=== PATIENT | female | born 1995 | race Caucasian/White ===

== ENCOUNTER 2017-08-29 00:16 | Emergency (ER) | payer BC, OTHER ==
[2017-08-29 00:21] VITALS: TEMP 98.1
[2017-08-29] MEDS ORDERED: predniSONE 50 MG TAB PO STA (01:02)
--- NOTE | 2017-08-29 01:04 | ED ---
Extremity Problem HPI - General Chief complaint: Extremity Problem,Nontraumatic Stated complaint: wrist pain Time Seen by Provider: 08/29/17 00:31 Source: patient Mode of arrival: ambulatory Limitations: no limitations - History of Present Illness Initial comments: 22-year-old female patient presents to the emergency department today for evaluation of right wrist pain and third and fourth digit numbness and tingling. Patient states this been going on for the last month and a half. 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 Patient states that she has tried taking ibuprofen and applying ice but it does not help. Patient states that sometimes the fingers fall asleep while she is at rest. She denies any injury to the hand or wrist. Patient denies any headache, neck pain, back pain, chest pain, shortness of breath, dizziness, weakness, abdominal pain, nausea, vomiting, or difficulties with bowel movements or urination. - Related Data Previous Rx's Medication Instructions Recorded predniSONE 50 mg PO DAILY #5 tablet 08/29/17 Allergies Allergy/AdvReac Type Severity Reaction Status Date / Time No Known Allergies Allergy Verified 08/29/17 00:21 Review of Systems ROS Statement: Those systems with pertinent positive or pertinent negative responses have been documented in the HPI. ROS Other: All systems not noted in ROS Statement are negative. Past Medical History Past Medical History: No Reported History History of Any Multi-Drug Resistant Organisms: None Reported Past Surgical History: No Surgical Hx Reported Past Psychological History: Anxiety Smoking Status: Current every day smoker Past Alcohol Use History: None Reported Past Drug Use History: Marijuana General Exam Limitations: no limitations General appearance: alert, in no apparent distress, other (This is a well- developed, well-nourished adult female patient in no acute distress. Vital signs upon presentation are temperature 98.1F, pulse 117, respirations 16, blood pressure 05/15/1988, pulse ox 99% on room air.) Eye exam: Present: normal appearance, PERRL, EOMI. Absent: scleral icterus, conjunctival injection, periorbital swelling ENT exam: Present: normal exam, normal oropharynx, mucous membranes moist Respiratory exam: Present: normal lung sounds bilaterally. Absent: respiratory distress, wheezes, rales, rhonchi, stridor Cardiovascular Exam: Present: regular rate, normal rhythm, normal heart sounds. Absent: systolic murmur, diastolic murmur, rubs, gallop, clicks Extremities exam: Present: normal inspection, full ROM, normal capillary refill , other (Right upper extremity is pink, warm, and dry. Cap refills less than 3 seconds. No evidence of swelling. Distal pulses intact.). Absent: tenderness , pedal edema, joint swelling, calf tenderness Neurological exam: Present: alert, oriented X3, CN II-XII intact Psychiatric exam: Present: normal affect, normal mood Skin exam: Present: warm, dry, intact, normal color. Absent: rash Course Vital Signs 08/29/17 08/29/17 00:18 01:17 Temperature 98.1 F 98.1 F Pulse Rate 117 H 101 H Respiratory 16 18 Rate Blood Pressure 124/89 113/80 O2 Sat by Pulse 99 98 Oximetry Medical Decision Making - Medical Decision Making 22-year-old female patient presented to the emergency department today for evaluation of right wrist pain and finger tingling. Physical examination was unremarkable. Patient good strength bilaterally. Distal pulses were intact. Neurovascular status was intact. Patient symptoms are consistent with carpal tunnel syndrome. We will give anti-inflammatories and steroids. She is instructed to follow-up with orthopedics for further evaluation. Return parameters discussed in detail. She verbalizes understanding and agrees with this plan. Disposition Clinical Impression: Carpal tunnel syndrome Disposition: HOME SELF-CARE Condition: Good Instructions: Paresthesia (ED), Arthralgia (ED) Additional Instructions: Follow-up with orthopedics as directed. Complete medication and full. Continue taking anti-inflammatories with meals. Return here immediately for any new, worsening, or concerning symptoms. Prescriptions: predniSONE 50 mg PO DAILY #5 tablet Is patient prescribed a controlled substance at d/c from ED?: No Referrals: None,Stated [Primary Care Provider] - 1-2 days Michael Butts DO [Doctor of Osteopathic Medicine] - 1-2 days Time of Disposition: 01:04
[2017-08-29 01:19] VITALS: BP 113/80; PULSE 101; RESP 18
== END 2017-08-29 01:18 | disposition home or self-care (01) ==
LOC: EC 00:16
DX: G56.01 Carpal tunnel syndrome, right upper limb (principal); F17.200 Nicotine dependence, unspecified, uncomplicated
CPT/HCPCS: 99283; J7512

== ENCOUNTER 2018-07-25 00:38 | Emergency (ER) | payer BC, OTHER ==
[2018-07-25 01:15] VITALS: RESP 16; TEMP 97.8
[2018-07-25] MEDS ORDERED: LORazepam 2 MG/ML INJ IV STA (01:33)
[2018-07-25] MEDS ORDERED: SODIUM CHLORIDE 0.9% 1,000 ML IV ONE (01:33)
[2018-07-25 02:05] LABS: Basophils % (A) 0 %; Eosinophils # (A) 0.2 k/uL (0-0.7); Eosinophils % (A) 1 %; HCT 43.4 % (34.0-46.0); HGB 14.7 gm/dL (11.4-16.0); Lymphocytes # (A) 1.9 k/uL (1.0-4.8); Lymphocytes % (A) 16 %; MCH 30.3 pg (25.0-35.0); MCHC 33.8 g/dL (31.0-37.0); MCV 89.5 fL (80.0-100.0); Mean Platelet Volume 7.6; Monocytes # (A) 0.5 k/uL (0-1.0); Monocytes % (A) 4 %; Neutrophils # (A) 9.6 k/uL (1.3-7.7); Neutrophils % (A) 78 %; Platelet Count 321 k/uL (150-450); RBC 4.85 m/uL (3.80-5.40); RDW 13.7 % (11.5-15.5); WBC 12.3 k/uL (3.8-10.6)
[2018-07-25 02:16] LABS: ALT 23 U/L (9-52); AST 32 U/L (14-36); Albumin 4.6 g/dL (3.5-5.0); Alkaline Phosphatase 94 U/L (38-126); Anion Gap 11 mmol/L; Blood Urea Nitrogen 10 mg/dL (7-17); Calcium 10.1 mg/dL (8.4-10.2); Carbon Dioxide 25 mmol/L (22-30); Chloride 104 mmol/L (98-107); Glucose 101 mg/dL (74-99); Potassium 4.4 mmol/L (3.5-5.1); Sodium 140 mmol/L (137-145); Total Bilirubin 0.5 mg/dL (0.2-1.3)
--- NOTE | 2018-07-25 02:29 | XR ---
EXAM: XR Chest, 2 Views CLINICAL HISTORY: Pain TECHNIQUE: Frontal and lateral views of the chest. COMPARISON: No relevant prior studies available. FINDINGS: Lungs: Unremarkable. No consolidation. Pleural space: Unremarkable. No pneumothorax. Heart: Unremarkable. No cardiomegaly. Mediastinum: Unremarkable. Bones/joints: Unremarkable. IMPRESSION: Unremarkable 2 views of the chest
--- NOTE | 2018-07-25 03:19 | ED ---
Anxiety HPI - General Chief Complaint: Anxiety Stated Complaint: Panic Attack Time Seen by Provider: 07/25/18 01:16 Source: patient Mode of arrival: ambulatory - History of Present Illness Initial Comments: 22-year-old female patient presents to the emergency department today for evaluation of chest pain, racing heart, and "brain fog". Patient states she's been having these symptoms for the last 2 weeks. Patient states she was diagnosed with anxiety by pulse and emergency department and her primary care physician. States she has been unable to sleep and 2 weeks. States she has been taking Xanax as needed but it is not helping. Patient is concerned she may have a hormonal imbalance and would like her hormones checked. She states that she does not feel anxious. She states that she is happy with her life and has not suicidal or homicidal. She denies any street drug use. Denies any use of stimulants such as caffeine. She denies any headache, blurred vision, double vision, weakness, dizziness, or numbness or tingling. Denies any history of similar symptoms before 2 weeks ago. Patient denies any recent rash, fever, chills, abdominal pain, nausea, vomiting, diarrhea, constipation, back pain, , hematuria, dysuria, urinary urgency, urinary frequency, headache, visual changes, or any other complaints. She denies chance of . - Related Data Home Medications: Previous Rx's Medication Instructions Recorded predniSONE 50 mg PO DAILY #5 tablet 08/29/17 Allergies/Adverse Reactions: Allergies Allergy/AdvReac Type Severity Reaction Status Date / Time No Known Allergies Allergy Verified 08/29/17 00:21 Review of Systems ROS Statement: Those systems with pertinent positive or pertinent negative responses have been documented in the HPI. ROS Other: All systems not noted in ROS Statement are negative. Past Medical History Past Medical History: No Reported History History of Any Multi-Drug Resistant Organisms: None Reported Past Surgical History: No Surgical Hx Reported Past Psychological History: Anxiety Smoking Status: Current every day smoker Past Alcohol Use History: None Reported Past Drug Use History: Marijuana General Exam Limitations: no limitations General appearance: alert, in no apparent distress, other (Physical well-devel oped, well-nourished adult female patient in no acute distress. Vital signs upon presentation are temperature 97.8F, pulse 109, respirations 60, pulse ox is 98% on room air.) Eye exam: Present: normal appearance, PERRL, EOMI. Absent: scleral icterus, conjunctival injection, periorbital swelling ENT exam: Present: normal exam, normal oropharynx, mucous membranes moist Respiratory exam: Present: normal lung sounds bilaterally. Absent: respiratory distress, wheezes, rales, rhonchi, stridor Cardiovascular Exam: Present: regular rate, normal rhythm, normal heart sounds. Absent: systolic murmur, diastolic murmur, rubs, gallop, clicks GI/Abdominal exam: Present: soft, normal bowel sounds. Absent: distended, tenderness, guarding, rebound, rigid Neurological exam: Present: alert, oriented X3, CN II-XII intact Psychiatric exam: Present: normal affect, normal mood Skin exam: Present: warm, dry, intact, normal color. Absent: rash Course Vital Signs 07/25/18 07/25/18 01:11 03:25 Temperature 97.8 F 97.8 F Pulse Rate 109 H 71 Respiratory 16 16 Rate Blood Pressure 124/89 O2 Sat by Pulse 98 99 Oximetry Medical Decision Making - Medical Decision Making 22-year-old female patient presents to the emergency department today for evaluation of anxiety, racing heart, chest pain, and brain fog. Physical examination is unremarkable. She is neurologically intact with no focal deficits. Patient was normal sinus rhythm on telemetry monitoring throughout visit. Labs reviewed and were unremarkable. TSH is within normal range. Upon reevaluation patient is feeling better. She'll be discharged home at this time to follow-up with her primary care physician in one to 2 days. She is instructed to discuss her monitoring. Return parameters were discussed in detail. She verbalizes understanding and agrees with this plan. - Lab Data Result diagrams: 07/25/18 01:48 07/25/18 01:48 Lab Results 07/25/18 07/25/18 07/25/18 Range/Units 01:48 01:48 01:48 WBC 12.3 H (3.8-10.6) k/uL RBC 4.85 (3.80-5.40) m/uL Hgb 14.7 (11.4-16.0) gm/dL Hct 43.4 (34.0-46.0) % MCV 89.5 (80.0-100.0) fL MCH 30.3 (25.0-35.0) pg MCHC 33.8 (31.0-37.0) g/dL RDW 13.7 (11.5-15.5) % Plt Count 321 (150-450) k/uL Neutrophils % 78 % Lymphocytes % 16 % Monocytes % 4 % Eosinophils % 1 % Basophils % 0 % Neutrophils # 9.6 H (1.3-7.7) k/uL Lymphocytes # 1.9 (1.0-4.8) k/uL Monocytes # 0.5 (0-1.0) k/uL Eosinophils # 0.2 (0-0.7) k/uL Basophils # 0.0 (0-0.2) k/uL D-Dimer 0.27 (<0.60) mg/L FEU Sodium 140 (137-145) mmol/L Potassium 4.4 (3.5-5.1) mmol/L Chloride 104 (98-107) mmol/L Carbon Dioxide 25 (22-30) mmol/L Anion Gap 11 mmol/L BUN 10 (7-17) mg/dL Creatinine 0.53 (0.52-1.04) mg/dL Est GFR (CKD-EPI)AfAm >90 (>60 ml/min/1.73 sqM) Est GFR (CKD-EPI)NonAf >90 (>60 ml/min/1.73 sqM) Glucose 101 H (74-99) mg/dL Calcium 10.1 (8.4-10.2) mg/dL Magnesium 2.0 (1.6-2.3) mg/dL Total Bilirubin 0.5 (0.2-1.3) mg/dL AST 32 (14-36) U/L ALT 23 (9-52) U/L Alkaline Phosphatase 94 (38-126) U/L Troponin I (0.000-0.034) ng/mL Total Protein 8.0 (6.3-8.2) g/dL Albumin 4.6 (3.5-5.0) g/dL TSH 1.990 (0.465-4.680) mIU/L 07/25/18 Range/Units 01:48 WBC (3.8-10.6) k/uL RBC (3.80-5.40) m/uL Hgb (11.4-16.0) gm/dL Hct (34.0-46.0) % MCV (80.0-100.0) fL MCH (25.0-35.0) pg MCHC (31.0-37.0) g/dL RDW (11.5-15.5) % Plt Count (150-450) k/uL Neutrophils % % Lymphocytes % % Monocytes % % Eosinophils % % Basophils % % Neutrophils # (1.3-7.7) k/uL Lymphocytes # (1.0-4.8) k/uL Monocytes # (0-1.0) k/uL Eosinophils # (0-0.7) k/uL Basophils # (0-0.2) k/uL D-Dimer (<0.60) mg/L FEU Sodium (137-145) mmol/L Potassium (3.5-5.1) mmol/L Chloride (98-107) mmol/L Carbon Dioxide (22-30) mmol/L Anion Gap mmol/L BUN (7-17) mg/dL Creatinine (0.52-1.04) mg/dL Est GFR (CKD-EPI)AfAm (>60 ml/min/1.73 sqM) Est GFR (CKD-EPI)NonAf (>60 ml/min/1.73 sqM) Glucose (74-99) mg/dL Calcium (8.4-10.2) mg/dL Magnesium (1.6-2.3) mg/dL Total Bilirubin (0.2-1.3) mg/dL AST (14-36) U/L ALT (9-52) U/L Alkaline Phosphatase (38-126) U/L Troponin I <0.012 (0.000-0.034) ng/mL Total Protein (6.3-8.2) g/dL Albumin (3.5-5.0) g/dL TSH (0.465-4.680) mIU/L - Radiology Data Radiology results: report reviewed, image reviewed Two-view x-ray of the chest is obtained. Report was reviewed in its entirety. Impression by Dr. Jimenez shows unremarkable 2 views of the chest. Disposition Clinical Impression: Anxiety, Palpitations Disposition: HOME SELF-CARE Condition: Good Instructions (If sedation given, give patient instructions): Heart Palpitations (ED), Anxiety (ED) Additional Instructions: Continue all medications as directed. Follow-up with your primary care physician for recheck in 1-2 days. Return to the emergency department immediately for any new, worsening, or concerning symptoms. Is patient prescribed a controlled substance at d/c from ED?: No Referrals: Sai Guerrero MD [Primary Care Provider] - 1-2 days Zuri Campos MD [STAFF PHYSICIAN] - 1-2 days Time of Disposition: 03:19
[2018-07-25 03:27] VITALS: BP 124/89; PULSE 71
== END 2018-07-25 03:27 | disposition home or self-care (01) ==
LOC: EC 00:38
DX: F41.9 Anxiety disorder, unspecified (principal); R00.2 Palpitations; R07.9 Chest pain, unspecified; F17.200 Nicotine dependence, unspecified, uncomplicated
CPT/HCPCS: 36415; 85379; 80053; 84443; 83735; 84484; 85025; 71046; 99283; 96374; 96361 ×2; J2060

== ENCOUNTER 2018-07-25 21:03 | Inpatient (IN) | payer MEDICAID, OTHER ==
[2018-07-25] MEDS ORDERED: LORazepam 1 MG TAB PO STA (21:51)
--- NOTE | 2018-07-25 21:51 | ED ---
Psych HPI - General Chief Complaint: Psychiatric Symptoms Stated Complaint: Paniac attack, mental health Time Seen by Provider: 07/25/18 21:51 Source: patient, RN notes reviewed, old records reviewed Mode of arrival: ambulatory - History of Present Illness Initial Comments: This is a 22-year-old female the ER for evaluation. Patient is today for evaluation of psychiatric illness. Recent hospital admissions. Anxiety and depression. Depression is significantly increased and she is now suicidal. MD Complaint: suicidal ideation, feels depressed -: unknown Associated Psychiatric Symptoms: depression, suicidal ideation History of same: Yes Quality: constant, getting worse Improves With: none Worsens With: none Associated Symptoms: denies other symptoms Treatments Prior to Arrival: placed on mental health hold If Self Harm: admits thoughts of self harm - Related Data Previous Rx's Medication Instructions Recorded Sertraline [Zoloft] 100 mg PO HS #30 tab 07/29/18 Allergies Allergy/AdvReac Type Severity Reaction Status Date / Time No Known Allergies Allergy Verified 07/26/18 03:10 Review of Systems ROS Statement: Those systems with pertinent positive or pertinent negative responses have been documented in the HPI. ROS Other: All systems not noted in ROS Statement are negative. Past Medical History Past Medical History: No Reported History History of Any Multi-Drug Resistant Organisms: None Reported Past Surgical History: No Surgical Hx Reported Past Psychological History: Anxiety Smoking Status: Current every day smoker Past Alcohol Use History: None Reported Past Drug Use History: Marijuana - Past Family History Mother Family Medical History: No Reported History Father History Unknown: Yes Additional Family Medical History / Comment(s): Substance abuse and mental health history. General Exam Limitations: no limitations General appearance: alert, in no apparent distress, anxious Head exam: Present: atraumatic, normocephalic, normal inspection Eye exam: Present: normal appearance, PERRL, EOMI. Absent: scleral icterus, conjunctival injection, periorbital swelling ENT exam: Present: normal exam, mucous membranes moist Neck exam: Present: normal inspection. Absent: tenderness, meningismus, lymphadenopathy Respiratory exam: Present: normal lung sounds bilaterally. Absent: respiratory distress, wheezes, rales, rhonchi, stridor Cardiovascular Exam: Present: normal rhythm, tachycardia, normal heart sounds. Absent: systolic murmur, diastolic murmur, rubs, gallop, clicks GI/Abdominal exam: Present: soft, normal bowel sounds. Absent: distended, tenderness, guarding, rebound, rigid Extremities exam: Present: normal inspection, full ROM, normal capillary refill. Absent: tenderness, pedal edema, joint swelling, calf tenderness Back exam: Present: normal inspection Neurological exam: Present: alert, oriented X3, CN II-XII intact Psychiatric exam: Present: normal affect, normal mood Skin exam: Present: warm, dry, intact, normal color. Absent: rash Course Vital Signs 07/25/18 07/26/18 07/26/18 21:29 02:07 02:56 Temperature 98.4 F 97.0 F L Pulse Rate 117 H Pulse Rate [ 85 Right] Respiratory 20 16 16 Rate Blood Pressure 157/96 Blood Pressure 121/82 [Right Arm] O2 Sat by Pulse 99 97 Oximetry - Reevaluation(s) Reevaluation #1: 07/25/18 23:25 Medical clear for psychiatric evaluation Medical Decision Making - Medical Decision Making 23 female the ER for mental health evaluation, patient to be admitted for mental health and psychiatric evaluation and treatment - Lab Data Result diagrams: 07/27/18 09:13 07/27/18 09:13 Lab Results 07/25/18 07/25/18 07/25/18 Range/Units 01:51 21:55 21:55 TSH 1.960 (0.465-4.680) mIU/L Urine HCG, Qual Not Detected (Not Detectd) Urine Opiates Screen Not Detected (NotDetected) Ur Oxycodone Screen Not Detected (NotDetected) Urine Methadone Screen Not Detected (NotDetected) Ur Propoxyphene Screen Not Detected (NotDetected) Ur Barbiturates Screen Not Detected (NotDetected) U Tricyclic Antidepress Not Detected (NotDetected) Ur Phencyclidine Scrn Not Detected (NotDetected) Ur Amphetamines Screen Not Detected (NotDetected) U Methamphetamines Scrn Not Detected (NotDetected) U Benzodiazepines Scrn Detected H (NotDetected) Urine Cocaine Screen Not Detected (NotDetected) U Marijuana (THC) Screen Not Detected (NotDetected) Disposition Clinical Impression: Anxiety, Major depressive disorder, recurrent, Panic disorder Disposition: TRANSFER TO PSYCH HOSP/UNIT Condition: Fair Is patient prescribed a controlled substance at d/c from ED?: No
[2018-07-25 22:24] LABS: Amphetamine Screen,Urine Not Detected (NotDetected); Barbiturate Screen,Urine Not Detected (NotDetected); Benzodiazepines Screen,Urine Detected (NotDetected); Cocaine Screen,Urine Not Detected (NotDetected); Methadone Screen, Urine Not Detected (NotDetected); Opiate Screen,Urine Not Detected (NotDetected); Oxycodone Screen, Urine Not Detected (NotDetected); Phencyclidine Screen,Urine Not Detected (NotDetected); Tricyclic Antidepressant,Urine Not Detected (NotDetected); Urn Cannabinoid Scrn Not Detected (NotDetected)
[2018-07-26] MEDS ORDERED: MAG HYDROX/AL HYDROX/SIMETH 30 ML CUP PO PRN (02:21)
[2018-07-26] MEDS ORDERED: ACETAMINOPHEN TAB 325 MG TAB PO PRN (02:21)
[2018-07-26] MEDS ORDERED: MAGNESIUM HYDROXIDE 2,400 MG/10 ML CUP PO PRN (02:21)
[2018-07-26] MEDS ORDERED: LORazepam 2 MG/ML INJ IM PRN (02:23)
[2018-07-26 03:03] VITALS: BMI 37.0
--- NOTE | 2018-07-26 10:50 | HP ---
HISTORY AND PHYSICAL DATE OF SERVICE DICTATION: 07/26/2018 IDENTIFYING DATA: This patient is a 23-year-old single female who was admitted to the mental health unit through the emergency room for suicidal ideations secondary to having ongoing panic attacks. HISTORY OF PRESENT ILLNESS: The patient states that for 2 weeks now she has been experiencing daily panic attacks that have been overwhelming. She presented to the ER just yesterday for evaluation and was discharged. She states that because of the panic, she was feeling hopeless and had thoughts of driving her car off of a bridge. She states she does not feel happy and experiences anhedonia. The panic attacks are described as episodes with chest pain, increased heart rate, headache, numbness or cold feeling, dizziness and sweating. These can last 15 minutes or for extensive period of time. She describes recent trouble falling asleep at night. Appetite is decreased. Energy is stable. She identifies no clear precipitant to these panic attacks that have started just 2 weeks ago. She describes no other panic attacks in her life prior to that. She has had depression in the past. No homicidal ideation reported. She endorses no hypomanic or manic symptoms. She endorses no auditory or visual hallucinations or any specific delusions. She resides with her fiance. She states at times, there may be firearms in the home, but they are not consistently there. PAST PSYCHIATRIC HISTORY: This is her second inpatient psychiatric hospitalization. The first was at age 17 at a [facility]. She had overdosed with pills as a suicide attempt. She is not currently open with any mental health clinic. She states that she is scheduled to have an intake on Saturday at [facility]. She was prescribed Xanax by the ER physician 0.25 mg. She states those are barely effective. In the remote past she was on Wellbutrin for very brief period of time, but not long enough for it to demonstrate efficacy. PAST MEDICAL HISTORY: None reported. Other than her stating she thinks she has hypothyroidism. She states there was a time when her TSH was elevated. However, subsequent labs including our in the ER indicate a normal level. She is concerned that she needs to see an metrology engineer to address this as it may be behind the panic attacks. ALLERGIES: No known drug allergies. CHEMICAL DEPENDENCY HISTORY: She reports no use of alcohol, marijuana, or any illicit drugs. She states that she did try marijuana in the past, but felt that it made her anxious. At age 17 she did try several substances including cocaine and street pills, but states she had no specific addiction to any of them. She has never been placed in residential treatment for chemical dependency reasons. FAMILY PSYCHIATRIC HISTORY: She states the her entire father's side of the family has depression, anxiety, as well as alcohol use disorder. She states her maternal grandfather also has alcohol use disorder. No suicides in the family. SOCIAL HISTORY: The patient is 23 years old. She is engaged. She has been with her fiance for 3 years. They have been engaged since February 2017. She has no children. She resides with her fiance. She is unemployed. She has a high school education. She attended [employer] briefly. She has 3 brothers, 2 sisters. She is mainly from the [place] area. She was raised by her mother. Her mother had been twice. The patient's biological father lived in [place]. He is now due to liver failure related to alcohol use. LEGAL HISTORY: She was arrested at age 17 for theft. She only had to pay a fine. ABUSE HISTORY: None reported. MENTAL STATUS EXAM: The patient is an overweight female appearing her stated age. She is dressed in her own clothing. Hygiene and grooming are adequate. She describes a depressed and anxious mood with hopeless thinking. She presented with acute suicidal ideation. She reports no homicidal ideation. She reports no auditory or visual hallucinations or any specific delusions. There is no observed evidence of psychosis. Thought process is linear. she demonstrates no tangential thinking, loose associations or flight of ideas. She does not appear hypomanic or manic. She demonstrates no verbal or physical aggressiveness. She demonstrates no involuntary repetitive movements. Affect is congruent to reported mood, appearing sad. She is oriented to person, place, and date. She is able to name the days of the week backwards. STRENGTHS: Housing, supportive relationship with major. WEAKNESSES: Mood and anxiety symptoms, causing significant psychosocial dysfunction. INTELLECT: Average. IMPRESSION: Major depressive disorder, recurrent, severe, without psychosis, panic disorder. PLAN: The patient has been admitted to the mental health unit voluntarily. We reviewed her presenting symptoms and treatment options. We decided to initiate Zoloft 50 mg at bedtime to address depressive and anxiety symptoms. Ativan will be used as needed but sparingly for acute anxiety. She is asked to participate fully in the milieu. We will monitor her for safety. She will be seen by Internal Medicine for routine history and physical exam. Social Work will meet with the patient to complete a psychosocial assessment and begin discharge planning. We will involve her family in treatment and discharge planning as she will allow. YOUNG / GABBI: [id number] /
[2018-07-26] MEDS: LORazepam 1 MG TAB PO PRN (19:33)
[2018-07-26] MEDS: SERTRALINE 50 MG TAB PO SCH (20:02)
--- NOTE | 2018-07-26 21:26 | P.MDCNMH ---
History of Present Illness H&P Date: 07/26/18 Chief Complaint: Depression Patient is a 23-year-old female with a known history of thyroid disorder, anxiety and nicotine addiction came to ER with complaints of depression and suicidal ideation. Patient has been having recurrent panic attacks recently. Patient came to the hospital voluntarily. Patient has been increasing depressive symptoms and low energy. Otherwise patient denied any complaints of chest pain or shortness of breath. No nausea vomiting or abdominal pain. No dysuria or hematuria. No fever no chills. Denied any recent illnesses. No cough or sputum production. Review of Systems Constitutional: Patient denies any fever or chills . No generalized weakness or weight loss. Abdomen: Patient denied nausea vomiting and diarrhea and abdominal pain. Cardiovascular: Patient denies any chest pain or short of breath no palpitations. Respiratory: patient denied any cough is from production. No shortness of breath Neurologic: Patient denied any numbness or tingling headache. Musculoskeletal: Patient denies any complaints of joint swelling or deformity. Skin: Negative Psychiatric: Depressed Endocrine: No heat or cold intolerance. No recent weight gain. Genitourinary: No dysuria or hematuria. All other 14 point ROS negative except the above Past Medical History Past Medical History: Thyroid Disorder History of Any Multi-Drug Resistant Organisms: None Reported Past Surgical History: No Surgical Hx Reported Additional Past Surgical History / Comment(s): Carpel tunnel right hand. Past Anesthesia/Blood Transfusion Reactions: No Reported Reaction Past Psychological History: Anxiety Smoking Status: Current every day smoker Past Alcohol Use History: Occasional Additional Past Alcohol Use History / Comment(s): Patient states that she drinks on occasion. Past Drug Use History: None Reported Additional Drug Use History / Comment(s): Pt denies any drug use at this time. - Past Family History Mother Family Medical History: No Reported History Father History Unknown: Yes Additional Family Medical History / Comment(s): Substance abuse and mental health history. Medications and Allergies Home Medications Medication Instructions Recorded Confirmed Type ALPRAZolam [Xanax] 0.25 mg PO BID PRN 07/25/18 07/25/18 History Allergies Allergy/AdvReac Type Severity Reaction Status Date / Time No Known Allergies Allergy Verified 07/26/18 03:10 Physical Exam Vitals: Vital Signs Temp Pulse Pulse Resp BP BP Pulse Ox 07/26/18 19:33 108 H 132/83 07/26/18 02:56 97.0 F L 85 16 121/82 97 07/26/18 02:07 16 07/25/18 21:29 98.4 F 117 H 20 157/96 99 Intake and Output 07/26/18 07/26/18 07/26/18 06:59 14:59 22:59 Other: Weight 107.218 kg PHYSICAL EXAMINATION: Patient is lying in the bed comfortably, no acute distress, awake alert and oriented.. HEENT: Normocephalic. Neck is supple. Pupils reactive. Nostrils clear. Oral cavity is moist. Ears reveal no drainage. Neck reveals no JVD, carotid bruits, or thyromegaly. CHEST EXAMINATION: Trachea is central. Symmetrical expansion. Lung almotne clear to auscultation and percussion. CARDIAC: Normal S1, S2 with no gallops. No murmurs ABDOMEN: Soft. Bowel sounds normal. No organomegaly. No abdominal bruits. Extremities: reveal no edema. No clubbing or cyanosis Neurologically awake, alert, oriented x3 with well-coordinated movements. No focal deficits noted Skin: No rash or skin lesions. Psychiatric: Coperative. Nonsuicidal Musculoskeletal: No joint swelling or deformity. Normal range of motion. Cranial Nerve Examination - Cranial Nerves Cranial Nerve I- Olfactory: Intact Cranial Nerve II- Optic: Intact Cranial Nerve III- Oculomotor: Intact Cranial Nerve IV- Trochlear: Intact Cranial Nerve V- Trigeminal: Intact Cranial Nerve - Abducens: Intact Cranial Nerve VII- Facial: Intact Cranial Nerve VIII- Auditory: Intact Cranial Nerve IX- Glossopharyngeal: Intact Cranial Nerve X- Vagus: Intact Cranial Nerve XI- Accessory: Intact Cranial Nerve XII- Hypoglossal: Intact Results Labs: Abnormal Lab Results - Last 24 Hours (Table) 07/25/18 Range/Units 21:55 U Benzodiazepines Scrn Detected H (NotDetected) Assessment and Plan Assessment: Depression with suicidal ideation Major depression History of hypothyroidism. Currently not on any medications at home Anxiety Panic attacks Nicotine addiction History of carpal tunnel syndrome Plan: Patient be continued on current antidepressants as per psychiatric recommendations. Recheck CBC CMP and TSH level. Smoking cessation has been counseled excessively. Otherwise continue the current management and follow karen castilloy. Thank you for your consult. Time with Patient: Greater than 30
[2018-07-27] MEDS: LORazepam 1 MG TAB PO PRN ×2 (01:16→23:23)
[2018-07-27 01:34] VITALS: TEMP 97.9
[2018-07-27 10:02] LABS: Basophils % (A) 0 %; Eosinophils # (A) 0.3 k/uL (0-0.7); Eosinophils % (A) 2 %; HCT 41.9 % (34.0-46.0); HGB 13.9 gm/dL (11.4-16.0); Lymphocytes # (A) 2.3 k/uL (1.0-4.8); Lymphocytes % (A) 19 %; MCH 29.9 pg (25.0-35.0); MCHC 33.2 g/dL (31.0-37.0); Mean Platelet Volume 7.6; Monocytes # (A) 0.7 k/uL (0-1.0); Monocytes % (A) 6 %; Neutrophils # (A) 8.9 k/uL (1.3-7.7); Neutrophils % (A) 72 %; Platelet Count 311 k/uL (150-450); RBC 4.66 m/uL (3.80-5.40); RDW 13.5 % (11.5-15.5); WBC 12.3 k/uL (3.8-10.6)
[2018-07-27 10:20] LABS: ALT 26 U/L (9-52); AST 26 U/L (14-36); Albumin 4.2 g/dL (3.5-5.0); Alkaline Phosphatase 76 U/L (38-126); Anion Gap 12 mmol/L; Blood Urea Nitrogen 10 mg/dL (7-17); Calcium 9.8 mg/dL (8.4-10.2); Carbon Dioxide 29 mmol/L (22-30); Chloride 99 mmol/L (98-107); Glucose 142 mg/dL (74-99); Potassium 4.4 mmol/L (3.5-5.1); Sodium 140 mmol/L (137-145); Total Bilirubin 0.8 mg/dL (0.2-1.3); Total Protein 7.3 g/dL (6.3-8.2)
--- NOTE | 2018-07-27 11:10 | P.PN ---
Progress Note - Text Interval history: The patient is found the hallway socializing with peers. She follows me to an interview room. She indicates that today she is feeling better. She describes having a "freak out" last evening. She felt acutely anxious and had a sense of doom depressive feelings were heightened. She took her evening Zoloft and Ativan and woke up feeling better. She describes some initial nausea with the Zoloft but we discussed that this may dissipate over the next several days. She does not feel that the nausea is severe. She has been attending groups. She is looking forward to a visit with family this evening. Mental status exam: The patient is a female appearing her stated age. She stressor own clothing. Hygiene grooming adequate. She reports that last evening she felt bad but feels better this morning. She reports having suicidal thoughts and any time she has a panic attack. She endorses no thoughts of harming others. She is reporting no auditory or visual hallucinations or any specific delusions. She does not appear hypomanic or manic. She demonstrates no verbal or physical aggressiveness. Insight and judgment grossly intact. Affect is brighter. Plan: The patient will continue on the Zoloft as written. She is using the Ativan as needed. We will monitor her for safety and encourage full participation in the milieu. She requires continued psychiatric hospitalization. Vital signs reviewed.
[2018-07-27 19:32] LABS: Appearance,Urine Cloudy (Clear); Bacteria,Urine Occasional /hpf; Bilirubin,Urine Negative (Negative); Blood,Urine Moderate (Negative); Budding Yeast,Urine Occasional /hpf; Color,Urine Yellow; Glucose,Urine (UA) Negative (Negative); Ketones,Urine Negative (Negative); Leukocyte Esterase,Urine Negative (Negative); Mucus,Urine Rare /hpf; Nitrite,Urine Negative (Negative); PH, Urine 5.5 (5.0-8.0); Protein,Urine Negative (Negative); RBC,Urine 1 /hpf (0-5); Specific Gravity,Urine 1.007 (1.001-1.035); Squamous Epithelial Cell,Urine 5 /hpf (0-4); Urobilinogen,Urine <2.0 mg/dL (<2.0); WBC,Urine 2 /hpf (0-5)
[2018-07-27] MEDS: SERTRALINE 50 MG TAB PO SCH (20:02)
[2018-07-28] MEDS ORDERED: MELATONIN 3 MG TABLET PO PRN (10:17)
--- NOTE | 2018-07-28 10:22 | P.PN ---
Progress Note - Text Interval history: The patient is found in her room she follows me to an interview room. She reports that her mood is improving she did not need the Ativan yesterday for acute anxiety. She is feeling tired and had significant difficulty sleeping last evening. She did have problems sleeping the night prior as well. She reports having a supportive visit from her fianc last evening. We reviewed her psychotropic medications and her questions were answered. She has used melatonin in the past. Mental status exam: The patient is alert she is dressed in her own clothing she is mildly disheveled hygiene is adequate. She reports her mood is better. She feels her anxiety is more controlled. She is reporting no acute suicidal or h omicidal ideation. She is reporting no auditory or visual hallucinations or any specific delusions. There is no observed evidence of psychosis. She demonstrates no verbal or physical aggressiveness. Insight and judgment improving. She is oriented to person place and date. Affect is appropriately expresses. Plan: The patient will continue on the Zoloft as written we will add melatonin at bedtime as needed. It appears her symptoms are improving. We will consider discharging her in the next 1-2 days if clinically stable. She is encouraged to fully participate in the milieu. Social work will arrange a support meeting.
[2018-07-28] MEDS: SERTRALINE 50 MG TAB PO SCH (19:55)
[2018-07-29] MEDS: LORazepam 1 MG TAB PO PRN ×2 (01:36→12:16)
[2018-07-29 06:46] VITALS: BP 132/88; PULSE 92; RESP 18
--- NOTE | 2018-07-29 10:52 | P.DS ---
Providers Date of admission: 07/26/18 02:20 Expected date of discharge: 07/29/18 Attending physician: Thony Vasquez Consults: 07/26/18 02:21 Consult Physician Routine Consulting Provider: Joshua Torre Consult Reason/Comments: Medical Management Do you want consulting provider notified?: Yes, Notify in am Primary care physician: Sai Guerrero - Discharge Diagnosis(es) (1) Major depressive disorder, recurrent Current Visit: Yes Status: Acute Priority: High (2) Panic disorder Current Visit: Yes Status: Acute Priority: High Hospital Course: Brief summary of admission note: This patient is a 23-year-old single female who was admitted to the mental health unit through the emergency room for suicidal ideation secondary to having ongoing panic attacks. She reported that 2 weeks ago these panic attacks started and have been overwhelming. Because of them she was feeling hopeless and had thoughts of driving her car off of a bridge. The panic attacks were described as causing chest pain and shortness of breath dizziness sweating and an impending sense of doom. For full details please refer to the psychiatric evaluation dated 07/26/2018. Summary of hospital course: The patient was admitted to the mental health unit voluntarily. We reviewed her presenting symptoms and treatment options. We decided to initiate Zoloft and eventually titrate the dose to 100 mg at bedtime. She has been tolerating the Zoloft with no reports of side effects. The patient was seen by internal medicine for routine history and physical exam. Social work met with the patient complete a psychosocial assessment and begin discharge planning. The patient is scheduled to participate in a support meeting at noon today prior to discharge. The patient selectively attended groups. She demonstrated no agitated behavior. She reported some difficulty sleeping at night but felt overall her mood had improved and her panic attacks were more controlled. She was concerned above it's being discharged and just following up with outpatient care. We discussed having her participate with the [facility] partial program as a transition. She was agreeable and she has an intake Saturday morning at [facility] for the partial hospital program. Mental status exam: The patient is alert she is dressed in her own clothing hygiene grooming adequate. Eye contacts appropriate speech is fluent spontaneous nonpressured. She indicates her mood is better she doesn't feel hopeless she reports no suicidal or homicidal ideation intent or plan. She reports no auditory or visual hallucinations or any specific delusions. She demonstrates no observed evidence of psychosis. She demonstrates no tangential thinking loose associations or flight of ideas. She does not appear hypomanic or manic. Affect is appropriately expresses she demonstrates appropriate smiling. Insight and judgment grossly intact she demonstrates no verbal or physical aggressiveness. She spontaneously describes future oriented thinking. Impressions 1. Major depressive disorder recurrent severe without psychosis, panic disorder Plan: The patient will be discharged today following her support meeting. She will return home. We have arranged for her to have an intake at the [facility] program Saturday morning. She will continue on Zoloft 100 mg at bedtime. At this time there is no imminent safety risk she is appropriate for transition to the next level of care. She is instructed to return to the hospital for any acute safety concerns. She reports no use of alcohol marijuana or illicit drugs and she is encouraged to continue abstaining from substances. Patient Condition at Discharge: Stable Plan - Discharge Summary Discharge Rx Participant: No New Discharge Prescriptions: New Sertraline [Zoloft] 100 mg PO HS #30 tab Discontinued ALPRAZolam [Xanax] 0.25 mg PO BID PRN PRN Reason: Anxiety Discharge Medication List Sertraline [Zoloft] 100 mg PO HS #30 tab 07/29/18 [Rx] Follow up Appointment(s)/Referral(s): intake,intake [Other] - 08/01/18 9:00 am (Intake for [facility] [Outside] - 08/04/18 11:00 am (Shruti Fregoso) Sai Guerrero MD [Primary Care Provider] - 1-2 days
[2018-07-29] MEDS ORDERED: SERTRALINE 100 MG TAB PO SCH (21:00)
== END 2018-07-29 12:37 | disposition home or self-care (01) | DRG 885 ==
LOC: EC 21:03 → 3MHU 07-26 02:20
PROVIDERS: ADMIT Psychiatry & Neurology Psychiatry; ATTEND Psychiatry & Neurology Psychiatry
DX: F33.2 Major depressive disorder, recurrent severe without psychotic features (principal); R45.851 Suicidal ideations; F41.0 Panic disorder [episodic paroxysmal anxiety]; Z79.899 Other long term (current) drug therapy; Z81.8 Family history of other mental and behavioral disorders; Z91.5 Personal history of self-harm; Z71.6 Tobacco abuse counseling; F17.210 Nicotine dependence, cigarettes, uncomplicated; Z56.0 Unemployment, unspecified; Z81.1 Family history of alcohol abuse and dependence; E03.9 Hypothyroidism, unspecified
CPT/HCPCS: 80053; 80306; 81001; 81025; 82075; 84443; 85025; 99285

== ENCOUNTER 2018-09-10 03:04 | Emergency (ER) | payer OTHER ==
[2018-09-10 03:21] VITALS: BP 124/80; PULSE 116; RESP 24; TEMP 98.2
[2018-09-10] MEDS ORDERED: ALPRAZolam 1 MG TAB PO STA (04:17)
--- NOTE | 2018-09-10 04:48 | ED ---
Anxiety HPI - General Chief Complaint: Anxiety Stated Complaint: Anxiety Time Seen by Provider: 09/10/18 03:51 Source: patient Mode of arrival: ambulatory - History of Present Illness Initial Comments: A lot is a 23-year-old female who presents the ER today for evaluation of panic attack. Patient reports that a few months ago she began having panic attacks, she has followed with her primary care physician for this and has been prescribed Zoloft which she's been taking for the past 2 months. She reports she feels the Zoloft is been working quite well however tonight she woke feeling very anxious she felt like her heart was racing her brain felt foggy. This is identical to previous episodes of panic attack. Patient was previously prescribed Xanax which she would take when she was having episodes like this however she currently does not have any so she came to the ER for evaluation. Patient has undergone a thorough evaluation including recurrent lab testing TSH testing with no acute findings when she's had episodes like this. Patient is scheduled to initiate counseling at [facility] later today. - Related Data Home Medications: Previous Rx's Medication Instructions Recorded Sertraline [Zoloft] 100 mg PO HS #30 tab 07/29/18 Allergies/Adverse Reactions: Allergies Allergy/AdvReac Type Severity Reaction Status Date / Time No Known Allergies Allergy Verified 07/26/18 03:10 Review of Systems ROS Statement: Those systems with pertinent positive or pertinent negative responses have been documented in the HPI. ROS Other: All systems not noted in ROS Statement are negative. Past Medical History Past Medical History: No Reported History History of Any Multi-Drug Resistant Organisms: None Reported Past Surgical History: No Surgical Hx Reported Additional Past Surgical History / Comment(s): carpal tunnel release R Past Anesthesia/Blood Transfusion Reactions: No Reported Reaction Past Psychological History: Anxiety Smoking Status: Current every day smoker Past Alcohol Use History: None Reported Past Drug Use History: Marijuana - Past Family History Mother Family Medical History: No Reported History Father History Unknown: Yes Additional Family Medical History / Comment(s): Substance abuse and mental health history. General Exam - General Exam Comments Initial Comments: Physical Exam GENERAL: Patient is well-developed and well-nourished. Patient is nontoxic and well- hydrated and is in no distress. HENT: Normocephalic, Atraumatic. EYES: PERRL, EOMI PULMONARY: Unlabored respirations. No audible rales rhonchi or wheezing was noted. CARDIOVASCULAR: Tachycardic, regular Warm and well perfused extremities ABDOMEN: Soft and nontender with normal bowel sounds. SKIN: Skin is clear with no lesions or rashes and otherwise unremarkable. : Deferred NEUROLOGIC: Patient is alert and oriented x3. Moving all extremities spontaneously MUSCULOSKELETAL: Normal extremities with adequate strength and full range of motion. No lower extremity swelling or edema. No calf tenderness. PSYCHIATRIC: Anxious Limitations: no limitations Course Vital Signs 09/10/18 03:17 Temperature 98.2 F Pulse Rate 116 H Respiratory 24 Rate Blood Pressure 124/80 O2 Sat by Pulse 99 Oximetry Medical Decision Making - Medical Decision Making The patient was seen and evaluated history is obtained from patient 23-year-old female with a history of anxiety recently began having panic attacks, has been seen in the ER for this and has followed with her primary care physician. Patient having a panic attack today she is currently out of Xanax at home so she came to the ER EKG was obtained for tachycardia, EKG obtained at 3:40 AM, rate is 103 rhythm is sinus tachycardia normal axis normal intervals and no acute ST elevations or depressions no evidence of acute ischemia or infarction. Was given 1 by mouth Xanax for anxiety. Patient will be discharged home I recommended she [facility] as scheduled and follow up with her primary care provider. Disposition Clinical Impression: Panic disorder Disposition: HOME SELF-CARE Condition: Stable Instructions (If sedation given, give patient instructions): Generalized Anxiety Disorder (ED) Is patient prescribed a controlled substance at d/c from ED?: No Referrals: Sai Guerrero MD [Primary Care Provider] - 1-2 days
== END 2018-09-10 04:57 | disposition home or self-care (01) ==
LOC: EC 03:04
DX: F41.0 Panic disorder [episodic paroxysmal anxiety] (principal); F17.200 Nicotine dependence, unspecified, uncomplicated
CPT/HCPCS: 93005; 99283

== ENCOUNTER → 2018-10-17 | Outpatient (CLI) | payer OTHER ==
--- NOTE | 2018-10-19 12:25 | MR ---
EXAMINATION TYPE: MR brain wo/w con DATE OF EXAM: 10/17/2018 COMPARISON: NONE HISTORY: Headaches, Abnormal menstruation, Hirsutism. TECHNIQUE: Multiplanar, multisequence images of the brain and brainstem is performed without and with IV contras t, utilizing 10 ML mL intravenous Gadavist . Exam is somewhat limited secondary to patient motion. FINDINGS: Diffusion weighted images demonstrate no evidence of a recent infarct or other diffusion ab normality. There is no extra-axial fluid collection or significant white matter signal abnormality. The ventricular system and cisternal spaces are normal in size and appearance. The brain volume is age appropriate. There is an uncomplicated nonenhancing 1.5 cm pineal gland that impresses upon the superior tectum. N o cerebral aqueduct narrowing at this time. The pituitary gland is nonenlarged. No gross evidence of abnormal enhancement is seen in the pituitary gland however delayed imaging is recommended to evaluat e for pituitary microadenoma with pituitary mass protocol if there is concern for microadenoma given the history. The craniocervical junction appears within normal limits. Post contrast images demonstrate no abnorm al enhancement. The dural venous sinuses appear patent. The visualized sinuses are clear and the glob es are intact. IMPRESSION: 1. 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 Correlate with ophth almologic exam to exclude Parinaud's syndrome. 2. No gross evidence of pituitary macroadenoma although evaluation for microadenoma is suboptimal of the pituitary gland. If there is further concern given the history for pituitary microadenoma, enhanc ed pituitary MRI would be recommended. 3. No significant white matter change, no evidence of acute infarct, no midline shift, and no abnorma l intracranial enhancement.
== END | disposition home or self-care (01) ==
LOC: RADMRIMAIN 18:43
PROVIDERS: ATTEND Family Medicine
DX: R51 Headache (principal); L68.0 Hirsutism; N92.6 Irregular menstruation, unspecified
CPT/HCPCS: 70553; A9585

== ENCOUNTER → 2018-11-13 | Outpatient (CLI) | payer OTHER ==
--- NOTE | 2018-11-13 15:52 | US ---
EXAMINATION TYPE: US pelvic complete DATE OF EXAM: 11/13/2018 COMPARISON: NONE CLINICAL HISTORY: N92.6 Dysfunctional Uterine Bleeding,L68.0 Hirsuti. TECHNIQUE: Transabdominal (TA). Date of LMP: 11/13/2018 EXAM MEASUREMENTS: Uterus: 9.3 x 3.8 x 4.8 cm Endometrial Stripe: 1.4 cm Right Ovary: 3.4 x 1.9 x 2.2 cm Left Ovary: 2.6 x 2.1 x 2.1 cm 1. Uterus: Anteverted wnl 2. Endometrium: measures 1.4 cm 3. Right Ovary: wnl 4. Left Ovary: wnl 5. Bilateral Adnexa: wnl 6. Posterior cul-de-sac: no free fluid IMPRESSION: Unremarkable pelvic ultrasound. No current sonographic evidence of polycystic ovarian syn drome although correlation with clinical symptoms and serum laboratory values is recommended given th e patient's primary concerns.
== END | disposition home or self-care (01) ==
LOC: RADUSWWP 15:13
PROVIDERS: ATTEND Family Medicine
DX: R10.9 Unspecified abdominal pain (principal); N93.8 Other specified abnormal uterine and vaginal bleeding; N92.6 Irregular menstruation, unspecified; L68.0 Hirsutism
CPT/HCPCS: 76856

== ENCOUNTER 2018-11-21 03:40 | Emergency (ER) | payer OTHER ==
[2018-11-21 03:49] VITALS: PULSE 103; TEMP 97.4
[2018-11-21] MEDS ORDERED: IBUPROFEN 600 MG TAB PO STA (04:03)
--- NOTE | 2018-11-21 04:32 | XR ---
EXAM: XR Right Wrist Complete, 3 or More Views CLINICAL HISTORY: ITS.REASON XR Reason: Pain TECHNIQUE: Frontal, lateral and oblique views of the right wrist. COMPARISON: No relevant prior studies available. FINDINGS: Bones/joints: No acute fracture. No dislocation. Soft tissues: Unremarkable. No radiopaque foreign body. IMPRESSION: No acute findings.
--- NOTE | 2018-11-21 05:02 | ED ---
General Adult HPI - General Chief complaint: Extremity Injury, Upper Stated complaint: Wrist Injury Time Seen by Provider: 11/21/18 03:52 Source: patient, family Mode of arrival: ambulatory Limitations: no limitations - History of Present Illness Initial comments: Patient is 23-year-old female presenting to emergency Department with a chief complaint of right hand pain. Patient reports she was tickling her boyfriend who accidentally pulled her right arm which is causing a lot of pain in her right wrist. Patient reports limited range of motion due to pain. Patient reports mild swelling at the right wrist. Patient also reports mild tenderness with palpation. Patient denies any numbness or tingling. Patient has full range of motion in the fingers. Patient denies any anatomical snuffbox tenderness. Patient reports taking [id number] analgesics with minimal improvement. - Related Data Previous Rx's Medication Instructions Recorded Sertraline [Zoloft] 100 mg PO HS #30 tab 07/29/18 Allergies Allergy/AdvReac Type Severity Reaction Status Date / Time No Known Allergies Allergy Verified 11/21/18 03:49 Review of Systems ROS Statement: Those systems with pertinent positive or pertinent negative responses have been documented in the HPI. ROS Other: All systems not noted in ROS Statement are negative. Past Medical History Past Medical History: No Reported History History of Any Multi-Drug Resistant Organisms: None Reported Past Surgical History: No Surgical Hx Reported Additional Past Surgical History / Comment(s): carpal tunnel release R Past Anesthesia/Blood Transfusion Reactions: No Reported Reaction Past Psychological History: Anxiety, Depression Smoking Status: Current every day smoker Past Alcohol Use History: None Reported Past Drug Use History: Marijuana - Past Family History Mother Family Medical History: No Reported History Father History Unknown: Yes Additional Family Medical History / Comment(s): Substance abuse and mental health history. General Exam Limitations: no limitations General appearance: alert, in no apparent distress Head exam: Present: atraumatic, normocephalic, normal inspection Eye exam: Present: normal appearance, PERRL, EOMI Pupils: Present: normal accommodation ENT exam: Present: normal exam, mucous membranes moist, normal external ear exam Neck exam: Present: normal inspection, full ROM Cardiovascular Exam: Present: regular rate, normal rhythm, normal heart sounds Extremities exam: Present: tenderness (Mild tenderness up with palpation), normal capillary refill, other (+2 ulnar and radial pulses). Absent: normal inspection (Mild right wrist edema but no erythema or skin discoloration), full ROM (Limited with flexion and extension of the right wrist) Back exam: Present: normal inspection, full ROM Neurological exam: Present: alert, oriented X3 Psychiatric exam: Present: normal affect, normal mood Skin exam: Present: warm, intact, normal color Course Vital Signs 11/21/18 11/21/18 03:45 05:21 Temperature 97.4 F L 97.4 F L Pulse Rate 103 H 103 H Respiratory 20 18 Rate Blood Pressure 115/81 116/82 O2 Sat by Pulse 98 98 Oximetry Procedures - Orthopedic Splinting/Casting Injury #1 Side: right Upper Extremity Injury Location: wrist Upper Extremity Immobilizer: Low wrap Medical Decision Making - Medical Decision Making Patient is a 23-year-old female presenting to emergency Department with a chief complaint of right wrist pain. X-ray of the right wrist is negative for acute fractures dislocations. Low wrap was applied. At this point suspect the patient has suffered a sprain and right wrist. Patient was to follow-up with orthopedics if symptoms not improved. Patient advised to alternate between Tylenol for pain control. Strict return parameters were thoroughly discussed the patient was understanding and agreeable. Case discussed with physician. Disposition Clinical Impression: Wrist pain, right Disposition: HOME SELF-CARE Condition: Stable Instructions (If sedation given, give patient instructions): Hand Sprain (ED) Additional Instructions: Please follow with orthopedics if symptoms not improved. Alternate between Tylenol and ibuprofen for pain control. Apply cold compress to minimize symptoms. Physical emergency department if symptoms worsen. Is patient prescribed a controlled substance at d/c from ED?: No Referrals: Valentin Lewis MD [Primary Care Provider] - 1-2 days Gerhard Littlejohn DO [Doctor of Osteopathic Medicine] - 1-2 days Time of Disposition: 05:01
[2018-11-21 05:23] VITALS: BP 116/82; RESP 18
== END 2018-11-21 05:20 | disposition home or self-care (01) ==
LOC: EC 03:40
DX: M25.531 Pain in right wrist (principal); F17.200 Nicotine dependence, unspecified, uncomplicated
CPT/HCPCS: 99283

== ENCOUNTER → 2019-01-15 | Outpatient (CLI) | payer OTHER ==
--- NOTE | 2019-01-15 15:28 | US ---
EXAMINATION TYPE: US thyroid st tissue head/neck DATE OF EXAM: 01/15/2019 COMPARISON: NONE CLINICAL HISTORY: E03.9 Subclinical hypothyroidism. Intermittent neck pain, swelling and difficulty s wallowing x 6 months GLAND SIZE: Right Lobe: 5.5 x 1.3 x 1.9 cm Overall Parenchyma: heterogenous Left Lobe: 4.0 x 0.9 x 1.6 cm Overall Parenchyma: heterogeneous Isthmus Thickness: 0.2 cm NODULES RIGHT: # of nodules measured on right: 0 LEFT: # of nodules measured on left: 0 ISTHMUS: # of nodules measured in the isthmus: 0 Bilateral neck scanned, no evidence of lymphadenopathy. Heterogeneous thyroid with enlarged right lobe, no definite nodules seen at this time. Very mild hype rvascularity throughout. IMPRESSION: Heterogenous and enlarged thyroid gland with no measurable nodule. Very mild hypervascularity through out can be seen in thyroiditis.
== END | disposition home or self-care (01) ==
LOC: RADUSWWP 12:34
PROVIDERS: ATTEND Internal Medicine
DX: E04.9 Nontoxic goiter, unspecified (principal); E06.9 Thyroiditis, unspecified
CPT/HCPCS: 76536

== ENCOUNTER → 2019-10-28 | Outpatient (CLI) | payer BC ==
--- NOTE | 2019-10-28 13:05 | US ---
EXAMINATION TYPE: US thyroid st tissue head/neck DATE OF EXAM: 10/28/2019 COMPARISON: US dated 01/15/2019 CLINICAL HISTORY: E04.9 nontoxic goiter. Neck pain and swelling, difficulty swallowing, patient on th yroid meds GLAND SIZE: Right Lobe: 5.3 x 1.3 x 1.7 cm Overall Parenchyma: homogenous Left Lobe: 4.0 x 0.9 x 1.5 cm Overall Parenchyma: homogeneous Isthmus Thickness: 0.2 cm NODULES RIGHT: # of nodules measured on right: 0 LEFT: # of nodules measured on left: 0 ISTHMUS: # of nodules measured in the isthmus: 0 Bilateral neck scanned, no evidence of lymphadenopathy. The thyroid echotexture is homogenous and symmetric. IMPRESSION: Normal thyroid ultrasound
== END | disposition home or self-care (01) ==
LOC: RADUSWWP 12:24
PROVIDERS: ATTEND Nurse Practitioner Family
DX: E04.9 Nontoxic goiter, unspecified (principal)
CPT/HCPCS: 76536

== ENCOUNTER 2021-01-31 05:29 | Emergency (ER) | payer BC, OTHER ==
[2021-01-31 05:35] VITALS: BP 128/82; PULSE 109; RESP 20; TEMP 99.4
[2021-01-31] MEDS ORDERED: KETOROLAC 15 MG/ML 1 ML VIAL IVP STA (06:28)
[2021-01-31] MEDS ORDERED: ONDANSETRON 4 MG/2 ML VIAL IVP STA (06:28)
[2021-01-31] MEDS ORDERED: SODIUM CHLORIDE 0.9% 1,000 ML IV STA (06:28)
[2021-01-31 06:34] LABS: Amorphous Sediment,Urine Rare /hpf; Appearance,Urine Cloudy (Clear); Bacteria,Urine Many /hpf; Bilirubin,Urine Negative (Negative); Blood,Urine Negative (Negative); Color,Urine Yellow; Glucose,Urine (UA) Negative (Negative); Hyaline Casts,Urine 1 /lpf (0-2); Ketones,Urine 1+ (Negative); Leukocyte Esterase,Urine Negative (Negative); Mucus,Urine Few /hpf; Nitrite,Urine Negative (Negative); PH, Urine 5.5 (5.0-8.0); Protein,Urine Trace (Negative); Specific Gravity,Urine 1.023 (1.001-1.035); Squamous Epithelial Cell,Urine 6 /hpf (0-4); Urobilinogen,Urine <2.0 mg/dL (<2.0); WBC,Urine 23 /hpf (0-5)
[2021-01-31 06:48] LABS: Basophils % (A) 1 %; Eosinophils % (A) 0 %; HCT 43.3 % (34.0-46.0); HGB 14.2 gm/dL (11.4-16.0); Lymphocytes # (A) 1.7 k/uL (1.0-4.8); Lymphocytes % (A) 22 %; MCH 29.8 pg (25.0-35.0); MCHC 32.7 g/dL (31.0-37.0); MCV 91.2 fL (80.0-100.0); Mean Platelet Volume 7.5; Monocytes # (A) 0.6 k/uL (0-1.0); Monocytes % (A) 9 %; Neutrophils # (A) 4.9 k/uL (1.3-7.7); Neutrophils % (A) 67 %; Platelet Count 231 k/uL (150-450); RBC 4.75 m/uL (3.80-5.40); RDW 12.7 % (11.5-15.5); WBC 7.4 k/uL (3.8-10.6)
--- NOTE | 2021-01-31 06:53 | ED ---
General Adult HPI - General Chief complaint: Back Pain/Injury Stated complaint: low back pain Time Seen by Provider: 01/31/21 06:19 Source: patient, RN notes reviewed Mode of arrival: ambulatory Limitations: no limitations - History of Present Illness Initial comments: Patient 25-year-old female presented to the emergency room today with a chief complaint of lower back pain over the last day. Patient states she felt most his pain starting last night. She states she had a difficult time sleeping. She does admit the last 3-4 days she's had symptoms since is not feeling well. States she had some decreased appetite. States she's been feeling nauseated at times. Patient denies abdominal pain. Denies any diarrhea. Denies any dysuria. Patient denies any chest pain. Patient denies any complaints or symptoms. Denies any known injury. - Related Data Home Medications Medication Instructions Recorded Confirmed ALPRAZolam [Xanax] 0.25 mg PO DAILY PRN 01/31/21 01/31/21 Levothyroxine Sodium [Synthroid] 50 mcg PO DAILY 01/31/21 01/31/21 Previous Rx's Medication Instructions Recorded Cephalexin [Keflex] 500 mg PO Q6HR 10 Days #40 cap 01/31/21 Ibuprofen [Motrin] 600 mg PO Q6HR PRN #30 day 01/31/21 Allergies Allergy/AdvReac Type Severity Reaction Status Date / Time No Known Allergies Allergy Verified 01/31/21 07:08 Review of Systems ROS Statement: Those systems with pertinent positive or pertinent negative responses have been documented in the HPI. ROS Other: All systems not noted in ROS Statement are negative. Past Medical History Past Medical History: No Reported History Additional Past Medical History / Comment(s): anxiety History of Any Multi-Drug Resistant Organisms: None Reported Past Surgical History: No Surgical Hx Reported Additional Past Surgical History / Comment(s): carpal tunnel release R Past Anesthesia/Blood Transfusion Reactions: No Reported Reaction Past Psychological History: Anxiety, Depression Smoking Status: Current every day smoker Past Alcohol Use History: None Reported Past Drug Use History: Marijuana - Past Family History Mother Family Medical History: No Reported History Father History Unknown: Yes Additional Family Medical History / Comment(s): Substance abuse and mental health history. General Exam - General Exam Comments Initial Comments: General: The patient is awake and alert, in no distress, and does not appear acutely ill. Eye: extra-ocular movements are intact. No nystagmus. There is normal conjunctiva bilaterally. No signs of icterus. Ears, nose, mouth and throat: There are moist mucous membranes and no oral lesions. Neck: The neck is supple, there is no tenderness or JVD. Cardiovascular: There is a regular rate and rhythm. No murmur, rub or gallop is appreciated. Respiratory: Lungs are clear to auscultation, respirations are non-labored, breath sounds are equal. No wheezes, stridor, rales, or rhonchi. Gastrointestinal: Soft nontender Musculoskeletal: Normal appearance of thoracic lumbar spine with no step-off or deformity. Mild tenderness paravertebrally both left and right side of the lower lumbar. Neurological: A&O x 3. CN II-XII intact, There are no obvious motor or sensory deficits. Coordination appears grossly intact. Speech is normal. Skin: Skin is warm and dry and no rashes or lesions are noted. Psychiatric: Cooperative, appropriate mood & affect, normal judgment. Limitations: no limitations Course Vital Signs 01/31/21 05:31 Temperature 99.4 F Pulse Rate 109 H Respiratory 20 Rate Blood Pressure 128/82 O2 Sat by Pulse 95 Oximetry Medical Decision Making - Medical Decision Making Patient reexamined at this time shows no signs of distress. She is resting comfortable. Patient's urinalysis does show some white cells. She does have some mild lower back pain. Was discussed about possibility musculoskeletal. Patient will be treated for UTI. Given dose Rocephin here in the emergency room. Will be continued on oral antibiotics and anti-inflammatories for pain. She is advised close follow-up family doctor over the next 2 days or return to emergency room if any symptoms increase or worsen or fail concerns. Patient states understanding and is in agreement. - Lab Data Result diagrams: 01/31/21 06:28 01/31/21 06:28 Lab Results 01/31/21 01/31/21 01/31/21 Range/Units 06:00 06:00 06:28 WBC 7.4 (3.8-10.6) k/uL RBC 4.75 (3.80-5.40) m/uL Hgb 14.2 (11.4-16.0) gm/dL Hct 43.3 (34.0-46.0) % MCV 91.2 (80.0-100.0) fL MCH 29.8 (25.0-35.0) pg MCHC 32.7 (31.0-37.0) g/dL RDW 12.7 (11.5-15.5) % Plt Count 231 (150-450) k/uL MPV 7.5 Neutrophils % 67 % Lymphocytes % 22 % Monocytes % 9 % Eosinophils % 0 % Basophils % 1 % Neutrophils # 4.9 (1.3-7.7) k/uL Lymphocytes # 1.7 (1.0-4.8) k/uL Monocytes # 0.6 (0-1.0) k/uL Eosinophils # 0.0 (0-0.7) k/uL Basophils # 0.0 (0-0.2) k/uL Sodium (137-145) mmol/L Potassium (3.5-5.1) mmol/L Chloride (98-107) mmol/L Carbon Dioxide (22-30) mmol/L Anion Gap mmol/L BUN (7-17) mg/dL Creatinine (0.52-1.04) mg/dL Est GFR (CKD-EPI)AfAm (>60 ml/min/1.73 sqM) Est GFR (CKD-EPI)NonAf (>60 ml/min/1.73 sqM) Glucose (74-99) mg/dL Calcium (8.4-10.2) mg/dL Total Bilirubin (0.2-1.3) mg/dL AST (14-36) U/L ALT (4-34) U/L Alkaline Phosphatase (38-126) U/L Total Protein (6.3-8.2) g/dL Albumin (3.5-5.0) g/dL Lipase (23-300) U/L Urine Color Yellow Urine Appearance Cloudy H (Clear) Urine pH 5.5 (5.0-8.0) Ur Specific [place] 1.023 (1.001-1.035) Urine Protein Trace H (Negative) Urine Glucose (UA) Negative (Negative) Urine Ketones 1+ H (Negative) Urine Blood Negative (Negative) Urine Nitrite Negative (Negative) Urine Bilirubin Negative (Negative) Urine Urobilinogen <2.0 (<2.0) mg/dL Ur Leukocyte Esterase Negative (Negative) Urine WBC 23 H (0-5) /hpf Ur Squamous Epith Cells 6 H (0-4) /hpf Amorphous Sediment Rare H (None) /hpf Urine Bacteria Many H (None) /hpf Hyaline Casts 1 (0-2) /lpf Urine Mucus Few H (None) /hpf Urine HCG, Qual Not Detected (Not Detectd) 01/31/21 Range/Units 06:28 WBC (3.8-10.6) k/uL RBC (3.80-5.40) m/uL Hgb (11.4-16.0) gm/dL Hct (34.0-46.0) % MCV (80.0-100.0) fL MCH (25.0-35.0) pg MCHC (31.0-37.0) g/dL RDW (11.5-15.5) % Plt Count (150-450) k/uL MPV Neutrophils % % Lymphocytes % % Monocytes % % Eosinophils % % Basophils % % Neutrophils # (1.3-7.7) k/uL Lymphocytes # (1.0-4.8) k/uL Monocytes # (0-1.0) k/uL Eosinophils # (0-0.7) k/uL Basophils # (0-0.2) k/uL Sodium 136 L (137-145) mmol/L Potassium 4.0 (3.5-5.1) mmol/L Chloride 101 (98-107) mmol/L Carbon Dioxide 27 (22-30) mmol/L Anion Gap 8 mmol/L BUN 10 (7-17) mg/dL Creatinine 0.68 (0.52-1.04) mg/dL Est GFR (CKD-EPI)AfAm >90 (>60 ml/min/1.73 sqM) Est GFR (CKD-EPI)NonAf >90 (>60 ml/min/1.73 sqM) Glucose 91 (74-99) mg/dL Calcium 9.2 (8.4-10.2) mg/dL Total Bilirubin 0.4 (0.2-1.3) mg/dL AST 46 H (14-36) U/L ALT 22 (4-34) U/L Alkaline Phosphatase 76 (38-126) U/L Total Protein 7.8 (6.3-8.2) g/dL Albumin 4.3 (3.5-5.0) g/dL Lipase 76 (23-300) U/L Urine Color Urine Appearance (Clear) Urine pH (5.0-8.0) Ur Specific [place] (1.001-1.035) Urine Protein (Negative) Urine Glucose (UA) (Negative) Urine Ketones (Negative) Urine Blood (Negative) Urine Nitrite (Negative) Urine Bilirubin (Negative) Urine Urobilinogen (<2.0) mg/dL Ur Leukocyte Esterase (Negative) Urine WBC (0-5) /hpf Ur Squamous Epith Cells (0-4) /hpf Amorphous Sediment (None) /hpf Urine Bacteria (None) /hpf Hyaline Casts (0-2) /lpf Urine Mucus (None) /hpf Urine HCG, Qual (Not Detectd) Disposition Clinical Impression: Acute UTI, Acute low back pain Disposition: HOME SELF-CARE Condition: Good Instructions (If sedation given, give patient instructions): Acute Low Back Pain (ED) Additional Instructions: Please use medication as discussed. Please follow-up with family doctor in the next 2 days of symptoms have not improved. Please return to emergency room if the symptoms increase or worsen or for any other concerns. Prescriptions: Cephalexin [Keflex] 500 mg PO Q6HR 10 Days #40 cap Ibuprofen [Motrin] 600 mg PO Q6HR PRN #30 day PRN Reason: Pain Is patient prescribed a controlled substance at d/c from ED?: No Referrals: Bethel Glover DO [Primary Care Provider] - 1-2 days Time of Disposition: 07:46
[2021-01-31 06:58] LABS: ALT 22 U/L (4-34); AST 46 U/L (14-36); African American GFR (CKD) >90 (>60 ml/min/1.73 sqM); Albumin 4.3 g/dL (3.5-5.0); Alkaline Phosphatase 76 U/L (38-126); Anion Gap 8 mmol/L; Blood Urea Nitrogen 10 mg/dL (7-17); Calcium 9.2 mg/dL (8.4-10.2); Carbon Dioxide 27 mmol/L (22-30); Chloride 101 mmol/L (98-107); Glucose 91 mg/dL (74-99); Lipase 76 U/L (23-300); Non-African American GFR(CKD) >90 (>60 ml/min/1.73 sqM); Sodium 136 mmol/L (137-145); Total Bilirubin 0.4 mg/dL (0.2-1.3); Total Protein 7.8 g/dL (6.3-8.2)
[2021-01-31] MEDS ORDERED: cefTRIAXone IN SWFI 1,000 MG/10 ML SYRINGE IVP STA (07:28)
== END 2021-01-31 09:17 | disposition home or self-care (01) ==
LOC: EC 05:29
DX: N39.0 Urinary tract infection, site not specified (principal); F32.9 Major depressive disorder, single episode, unspecified; F41.9 Anxiety disorder, unspecified; F17.200 Nicotine dependence, unspecified, uncomplicated; F12.90 Cannabis use, unspecified, uncomplicated; Z79.1 Long term (current) use of non-steroidal anti-inflammatories (NSAID); Z79.890 Hormone replacement therapy; Z79.899 Other long term (current) drug therapy
CPT/HCPCS: 99283 ×2; 96374 ×2; 96375 ×3; 96361 ×2; 36415; 80053; 83690; 85025; 81001; 81025; 87086; J2405; J0696; J1885

== ENCOUNTER 2021-10-05 12:34 | Emergency (ER) | payer OTHER ==
[2021-10-05 13:09] VITALS: BP 111/78; PULSE 110; RESP 20; TEMP 98.5
[2021-10-05 14:10] LABS: Appearance,Urine Clear (Clear); Bilirubin,Urine Negative (Negative); Blood,Urine Negative (Negative); Color,Urine Yellow; Glucose,Urine (UA) Negative (Negative); Ketones,Urine Negative (Negative); Leukocyte Esterase,Urine Negative (Negative); Nitrite,Urine Negative (Negative); PH, Urine 5.5 (5.0-8.0); Protein,Urine Negative (Negative); Specific Gravity,Urine 1.022 (1.001-1.035); Urobilinogen,Urine <2.0 mg/dL (<2.0)
[2021-10-05] MEDS ORDERED: cefTRIAXone 250 MG VIAL IM STA (15:46)
[2021-10-05] MEDS ORDERED: AZITHROMYCIN 250 MG TAB PO STA (15:47)
[2021-10-05] MEDS ORDERED: metroNIDAZOLE 500 MG TAB PO STA (15:48)
--- NOTE | 2021-10-05 16:20 | ED ---
Female Urogenital HPI - General Chief complaint: Urogenital Stated complaint: Abd Pain Time Seen by Provider: 10/05/21 14:58 Source: patient Mode of arrival: ambulatory Limitations: no limitations - History of Present Illness Initial comments: Patient is a 26-year-old female who presents for evaluation of vaginal discharge. Patient states this started 2 days ago. Describes it as white and thick, resembling weight icing. Patient states she has had history of bacterial vaginosis and yeast infection which did not resemble her current discharge. Patient has not noticed any smell. Patient does have a new partner. Patient reports that her significant other has new onset of throat pain which concerned them. Patient states she has mild pain with intercourse but otherwise denies other pain. Denies fever, chills, burning with urination, increased urinary frequency/urgency, nausea, and vomiting. Patient states she has history of PCOS so her menstrual periods are irregular. Last menstrual period unknown. Denies chance of . Last Menstrual Period: 09/08/21 - Related Data Home Medications Medication Instructions Recorded Confirmed ALPRAZolam [Xanax] 0.25 mg PO DAILY PRN 01/31/21 01/31/21 Levothyroxine Sodium [Synthroid] 50 mcg PO DAILY 01/31/21 01/31/21 Previous Rx's Medication Instructions Recorded Cephalexin [Keflex] 500 mg PO Q6HR 10 Days #40 cap 01/31/21 Ibuprofen [Motrin] 600 mg PO Q6HR PRN #30 day 01/31/21 Allergies Allergy/AdvReac Type Severity Reaction Status Date / Time No Known Allergies Allergy Verified 10/05/21 13:09 Review of Systems ROS Statement: Those systems with pertinent positive or pertinent negative responses have been documented in the HPI. ROS Other: All systems not noted in ROS Statement are negative. Past Medical History Past Medical History: No Reported History Additional Past Medical History / Comment(s): anxiety History of Any Multi-Drug Resistant Organisms: None Reported Past Surgical History: No Surgical Hx Reported Additional Past Surgical History / Comment(s): carpal tunnel release R Past Anesthesia/Blood Transfusion Reactions: No Reported Reaction Past Psychological History: Anxiety, Depression Smoking Status: Current every day smoker Past Alcohol Use History: None Reported Past Drug Use History: Marijuana - Past Family History Mother Family Medical History: No Reported History Father History Unknown: Yes Additional Family Medical History / Comment(s): Substance abuse and mental health history. General Exam Limitations: no limitations General appearance: alert, in no apparent distress Head exam: Present: atraumatic, normocephalic, normal inspection Eye exam: Present: normal appearance, PERRL, EOMI. Absent: scleral icterus, conjunctival injection, periorbital swelling Respiratory exam: Present: normal lung sounds bilaterally. Absent: respiratory distress, wheezes, rales, rhonchi, stridor Cardiovascular Exam: Present: regular rate, normal rhythm, normal heart sounds. Absent: systolic murmur, diastolic murmur, rubs, gallop, clicks GI/Abdominal exam: Present: soft, normal bowel sounds. Absent: distended, tenderness, guarding, rebound, rigid External exam: Present: normal external exam Speculum exam: Present: vaginal discharge (white, thick, homogeneous ). Absent: erythema, cervical discharge, vaginal bleeding, foreign body By manual exam: Present: normal by manual exam. Absent: cervical motion tenderness, adnexal tenderness, adnexal mass, uterine enlargement, uterine tenderness Back exam: Present: normal inspection, full ROM. Absent: CVA tenderness (R), CVA tenderness (L) Neurological exam: Present: alert, oriented X3, CN II-XII intact Psychiatric exam: Present: normal affect, normal mood Skin exam: Present: warm, dry, intact, normal color. Absent: rash Course Vital Signs 10/05/21 13:05 Temperature 98.5 F Pulse Rate 110 H Respiratory 20 Rate Blood Pressure 111/78 O2 Sat by Pulse 95 Oximetry Medical Decision Making - Medical Decision Making This is a 26-year-old female who is a transfer evaluation of vaginal discharge. Thorough history and examination were performed. Patient states she does not normally have discharge however for the past 2 days has experienced a moderate amount of white, thick discharge. Besides mild pain with sexual intercourse she feels well. He does report a new significant other. Speculum exam revealed a normal cervix with a white vaginal discharge, moderately thick, homogeneous in nature. Based on its characteristics the vaginal discharge did not closely resemble a certain infection. No significant adnexal or cervical tenderness during my bimanual exam. No fever or chills. This could be physiologic. Patient tested for gonorrhea, chlamydia, Trichomonas and yeast. Urinalysis is within normal limits. is not detected. I will empirically treat patient while waiting for results. Patient received ceftriaxone, azithromycin, and Flagyl in the emergency department. She is instructed to not drink alcohol for next 24 hours. She is instructed to not have any type of intercourse for one week or until negative results. She understands if results are positive her partner will have to be treated. She verbalizes understanding and is agreeable to this plan. Dr. Hollis is my attending. - Lab Data Lab Results 10/05/21 10/05/21 10/05/21 Range/Units 13:49 13:49 15:54 Urine Color Yellow Urine Appearance Clear (Clear) Urine pH 5.5 (5.0-8.0) Ur Specific [place] 1.022 (1.001-1.035) Urine Protein Negative (Negative) Urine Glucose (UA) Negative (Negative) Urine Ketones Negative (Negative) Urine Blood Negative (Negative) Urine Nitrite Negative (Negative) Urine Bilirubin Negative (Negative) Urine Urobilinogen <2.0 (<2.0) mg/dL Ur Leukocyte Esterase Negative (Negative) Urine HCG, Qual Not Detected (Not Detectd) Trichomonas Ag (Rapid) Negative (Negative) Disposition Clinical Impression: Concern about STD in female without diagnosis, Vaginal discharge Disposition: HOME SELF-CARE Condition: Good Instructions (If sedation given, give patient instructions): Vaginal Discharge (ED) Additional Instructions: Please do not have any type of sexual intercourse until you find out results of your testing. You may call the hospital to be transferred to the lab on Saturday for results or wait one week and if you do not receive a call regarding results you can assume they are negative. If rwsults are positive your partner will need to be treated as well. Please do not drink for the next 24 hours since you took the antibiotic Flagyl in the emergency department. Follow-up with primary care provider in one to 2 days. Return to the emergency department if you experience new, concerning, or worsening symptoms Is patient prescribed a controlled substance at d/c from ED?: No Referrals: Bethel Glover DO [Primary Care Provider] - 1-2 days Time of Disposition: 16:24
[2021-10-06 13:26] LABS: C. trachomatis,PCR Negative (Neg,Equiv); Chlamydia trachomatis Source Vagina; N. gonorrhoeae,PCR Negative (Neg,Equiv); Neisseria Source Vagina
== END 2021-10-05 16:39 | disposition home or self-care (01) ==
LOC: EC 12:34
DX: Z20.2 Contact with and (suspected) exposure to infections with a predominantly sexual mode of transmission (principal); F17.200 Nicotine dependence, unspecified, uncomplicated
CPT/HCPCS: 81003; 81025; 87808; 87491; 87591; 87070; 99284; 96372; J0696

== ENCOUNTER → 2023-07-09 | Outpatient (CLI) | payer OTHER ==
--- NOTE | 2023-07-09 11:44 | US ---
EXAMINATION TYPE: US pelvic complete DATE OF EXAM: 07/09/2023 COMPARISON: 11/13/2018 CLINICAL INDICATION: Female, 27 years old with history of N91.2 AMENORRHEA, UNSPECIFIED; Irregular me nses- last menses February, patient states she started spotting today. TECHNIQUE: Transabdominal (TA). Transabdominal sonographic images of the pelvis were acquired. Date of LMP: 03/06/2023, [id number] EXAM MEASUREMENTS: Uterus: 9.8 x 4.7 x 4.5 cm Endometrial Stripe: 0.5 cm Right Ovary: 2.8 x 1.9 x 1.8 cm Left Ovary: 4.0 x 3.4 x 2.4 cm 1. Uterus: Anteverted wnl 2. Endometrium: wnl, no thickening or lesions seen at time of scan 3. Right Ovary: follicles seen 4. Left Ovary: Dominant follicle vs simple cyst= 2.9 x 2.9 x 2.1 cm 5. Bilateral Adnexa: no free fluid 6. Posterior cul-de-sac: no free fluid IMPRESSION: No evidence for acute process. 1. Endometrium within normal limits for thickness. 2. Left ovarian dominant follicle measuring up to 2.9 cm.
== END | disposition home or self-care (01) ==
LOC: RADUSWWP 09:52
PROVIDERS: ATTEND Family Medicine
DX: N91.2 Amenorrhea, unspecified (principal)
CPT/HCPCS: 76856